=== PATIENT | male | born 1980 | race Caucasian/White ===

== ENCOUNTER 2021-09-05 09:57 | Emergency (ER) | payer OTHER ==
[2021-09-05 10:10] VITALS: BP 124/76
[2021-09-05] MEDS ORDERED: CHERRY SYRUP 10 ML UDC PO ONE (10:57)
[2021-09-05] MEDS ORDERED: KETOROLAC 60 MG/2 ML VIAL IM STA (10:57)
[2021-09-05] MEDS ORDERED: DEXAMETHASONE 10 MG/ML VIAL PO STA (10:57)
--- NOTE | 2021-09-05 11:00 | ED Physician Documentation ---
PD HPI BACK PAIN - Stated complaint Stated Complaint: UPPER BACK PX - Chief complaint Chief Complaint: Back Pain - History obtained from History obtained from: Patient, Family - History of Present Illness Timing - onset: How many weeks ago (1) Timing - duration: Weeks (1) Timing - details: Abrupt onset, Still present Location: Upper, Lower Quality: Pain, Spasm, Sharp Worsened by: Movement, Twisting, Palpation Contributing factors: Lifting, Twisting, Other (Carried a log out along a stream with other people over the left shoulder with a lot of jostling of the log.) Similar symptoms before: Has not had sx before Recently seen: Not recently seen - Additional information Additional information: 41-year-old Tanya Conroy was carrying a log through a stream with some other people, over his left shoulder. There was quite a bit of movement of this heavy log and the patient did this for some time. He has subsequently developed some pain associated with this in his upper neck and back along the top of the left shoulder. He has been moving his home and continues to use the upper back and shoulder and this is now has become intolerable. The initial injury was about one week ago. Review of Systems Constitutional: denies: Fever Ears: denies: Ear pain Nose: denies: Congestion Throat: denies: Sore throat Cardiac: denies: Chest pain / pressure, Palpitations Respiratory: denies: Dyspnea, Cough GI: denies: Abdominal Pain, Nausea, Vomiting : denies: Dysuria, Frequency PD PAST MEDICAL HISTORY - Present Medications Home Medications: Ambulatory Orders Medication Instructions Recorded Confirmed Cyclobenzaprine [Flexeril] 10 mg PO TID PRN #20 tablet 09/05/21 - Allergies Allergies/Adverse Reactions: Allergies Allergy/AdvReac Type Severity Reaction Status Date / Time amoxicillin Allergy Hives Verified 09/05/21 10:10 ampicillin Allergy Hives Verified 09/05/21 10:10 Penicillins Allergy Hives Verified 09/05/21 10:10 sulfamethoxazole Allergy Hives Verified 09/05/21 10:10 [From Bactrim] trimethoprim [From Bactrim] Allergy Hives Verified 09/05/21 10:10 PD ED PE NORMAL - Vitals Vital signs reviewed: Yes (normal) - General General: Alert and oriented X 3, No acute distress, Well developed/nourished - HEENT HEENT: Atraumatic, PERRL, EOMI - Neck Neck: Supple, no meningeal sign, No bony TTP, No adenopathy, Other (mild tenderness along the paraspinous muscles of the upper thorax and along the supraspinatous. ) - Respiratory Respiratory: No respiratory distress - Back Back: No CVA TTP, No spinal TTP - Derm Derm: Normal color, Warm and dry, No rash - Extremities Extremities: No deformity, No edema - Neuro Neuro: Alert and oriented X 3, collar feller 2-12 intact, No motor deficit, No sensory deficit, Normal speech Eye Opening: Spontaneous Motor: Obeys Commands Verbal: Oriented GCS Score: 15 - Psych Psych: Normal mood, Normal affect Results - Vitals Vitals: Vital Signs - 24 hr 09/05/21 10:06 Temperature 36.9 C Heart Rate 61 Respiratory 14 Rate Blood Pressure 124/76 O2 Saturation 100 Oxygen O2 Source Room air PD MEDICAL DECISION MAKING - ED course Complexity details: considered differential, d/w patient, d/w family ED course: 41-year-old male with a myofascial injury to his upper back and neck is administered dexamethasone and Toradol imaging is not performed. Departure - Departure Disposition: 01 Home, Self Care Clinical Impression: Thoracic myofascial strain Qualifiers: Encounter type: initial encounter Qualified Code(s): S29.019A - Strain of muscle and tendon of unspecified wall of thorax, initial encounter Condition: Stable Instructions: ED Sprain Thoracic Spine Follow-Up: MARTA Cabrera [Provider Group] Prescriptions: Cyclobenzaprine [Flexeril] 10 mg PO TID PRN #20 tablet PRN Reason: Spasms Comments: Tanya, today it looks like you have myofacial strain or a tearing of the junction between the muscle and bone. The inflammation should subside in the next week and we have given you a dose of decadron and toradal today. The recommendation is to use Ibuprofen for the pain (take with food) and reduce your level of use of your upper back and neck. A muscle relaxant "flexeril" has been e-scribed to the [facility] in [place]. You cannot drive or operate machinery after taking this and the recommendation is to take it at night or during the day when you are not expected to do anything else. Discharge Date/Time: 09/05/21 11:11
== END 2021-09-05 11:11 | disposition home or self-care (01) ==
LOC: ED 09:57
DX: S29.019A Strain of muscle and tendon of unspecified wall of thorax, initial encounter (principal); X50.0XXA Overexertion from strenuous movement or load, initial encounter
CPT/HCPCS: 96372; 99282; 99283; A9270